=== PATIENT | female | born 1975 | race Two or more races ===

== ENCOUNTER 2017-10-14 08:13 | Day surgery (SDC) | payer OTHER | END 2017-10-14 12:55 | disposition home or self-care (01) | LOC: CIR.AMB 08:13 | DX: N80.0 Endometriosis of uterus (principal); N84.0 Polyp of corpus uteri ==

== ENCOUNTER 2020-02-15 09:55 | Outpatient (CLI) | payer OTHER | END 2020-02-15 14:37 | disposition home or self-care (01) | LOC: NUCLEAR 09:55 | PROVIDERS: ATTEND Internal Medicine Sports Medicine | DX: C73 Malignant neoplasm of thyroid gland (principal) | CPT/HCPCS: 79005; A9517 ==

== ENCOUNTER 2020-02-20 10:22 | Outpatient (CLI) | payer OTHER | END 2020-02-20 11:08 | disposition home or self-care (01) | LOC: NUCLEAR 10:22 | PROVIDERS: ATTEND Internal Medicine Sports Medicine | DX: C73 Malignant neoplasm of thyroid gland (principal) ==